=== PATIENT | female | born 1965 | race Caucasian/White ===

== ENCOUNTER 2018-07-25 19:26 | Emergency (ER) | payer SELFPAY ==
[~2018-07-25] VITALS: Ht 157.5 cm; Wt 97.7 kg
[2018-07-25] MEDS ORDERED: OxyCODONE HCL/ACETAMINOPHEN 5-325 MG TABLET PO ONE (21:30)
[2018-07-25 22:30] VITALS: BP 128/66
== END 2018-07-25 23:26 | disposition home or self-care (01) ==
LOC: EMS 19:27
DX: S80.02XA Contusion of left knee, initial encounter (principal); M54.5 Low back pain; M54.6 Pain in thoracic spine; W01.0XXA Fall on same level from slipping, tripping and stumbling without subsequent striking against object, initial encounter; Y93.89 Activity, other specified; Y92.511 Restaurant or cafe as the place of occurrence of the external cause; Y99.8 Other external cause status
CPT/HCPCS: 72072; 72100